=== PATIENT | female | born 1965 | race Caucasian/White ===

== ENCOUNTER → 2017-03-04 | Outpatient (CLI) | payer BC ==
--- NOTE | 2017-03-04 08:41 | RAD ---
Indication chest congestion with productive cough. Frontal and lateral views of the chest were obtained. No prior imaging of the chest is available. The heart and pulmonary vessels appear normal. The lungs are clear. There are mild degenerative changes in the thoracic spine. IMPRESSION:: No acute or focal process seen in the chest
== END | disposition home or self-care (01) ==
LOC: DXRADRC 08:14
PROVIDERS: ATTEND Physician Assistant Medical
DX: R09.89 Other specified symptoms and signs involving the circulatory and respiratory systems (principal); R05 Cough
CPT/HCPCS: 71020